=== PATIENT | female | born 1965 | race Caucasian/White ===

== ENCOUNTER 2018-10-19 10:06 | Emergency (ER) | payer OTHER ==
[~2018-10-19] VITALS: Ht 154.9 cm; Wt 63.5 kg
--- OUTSIDE RECORDS SUMMARY | 2018-10-19 10:27 | XMS REPORT | Continuity of Care Document ---
Author Organization Unknown Address Unknown Allergies There is no data. Medications There is no data. Problems There is no data. Procedures There is no data. Results There is no data. Encounters ACCT No. Visit Date/Time Discharge Status Pt. Type Provider Facility Loc./Unit Complaint [id number] 12/25/2016 11:52:00 12/25/2016 23:59:00 DIS Outpatient [facility]
--- NOTE | 2018-10-19 10:40 | ED EENT ---
History of Present Illness General Chief Complaint: Eye Problems Stated Complaint: LT EYE SWELLING Nursing Triage Note: 5 days ago started having tearing and itching of left eye that she thought was allergies. 3 days ago started losing central vision in left eye. States she can see fine from peripheral vision. Sclera is reddened, states eyelashes were matted this morning. Source: patient, family Exam Limitations: no limitations History of Present Illness Date Seen by Provider: Oct 19, 2018 Time Seen by Provider: 10:30 Initial Comments Patient presents c/ c/o left eye discomfort, redness, and vision loss x 5 days. Initially started as watering and itching, but has developed vision loss centrally over the last 3 days. Rates her pain @ 7/10. No known injury or trauma. Did have some exudate this AM. Timing/Duration: gradual, other (x 5 days) Location: eye (L) Prearrival Treatment: no prearrival treatment Modifying Factors: Improves With Other (none) Associated Symptoms: denies symptoms (x/ as noted.) Allergies and Home Medications Allergies Coded Allergies: erythromycin base (Verified Allergy, Unknown, difficulty breathing, 10/19/18) Patient Home Medication List Home Medication List Reviewed: Yes Review of Systems Review of Systems Constitutional: see HPI Eyes: See HPI, Decreased Acuity, Inflammation, Pain All Other Systems Reviewed Negative Unless Noted: Yes (Negative excepted noted.) Past [id number]-[id number]-Zsafdj Hx Patient Social History Alcohol Use: Denies Use Recreational Drug Use: No Smoking Status: Current Everyday Smoker Type Used: Cigarettes 2nd Hand Smoke Exposure: Yes Recent Foreign Travel: No Contact w/Someone Who Travel: No Recent Infectious Disease Expo: No Recent Hopitalizations: No Physical Abuse: No Sexual Abuse: No Mistreated: No Fear: No Seasonal Allergies Seasonal Allergies: No Past Medical History Surgeries: Yes Section, Gallbladder, Hysterectomy Respiratory: Yes Asthma Cardiac: No Neurological: No Genitourinary: No Gastrointestinal: No Musculoskeletal: Yes Chronic Back Pain Endocrine: No HEENT: No Cancer: No Psychosocial: Yes Anxiety, Depression Integumentary: No Physical Exam Vital Signs Vital Signs - First Documented 10/19/18 10:10 Temp 99.1 Pulse 84 Resp 18 B/P (MAP) 134/80 (98) Pulse Ox 90 Height, Weight, BMI Height: 5'1.00" Weight: 140lbs. oz. [id number]; BMI Method:Stated General Appearance: WD/WN, mild distress Eyes: left eye PERRL, left eye EOMI, left eye conjunctival inflammation, left eye lid inflammation Cardiovascular: regular rate, rhythm Respiratory: no respiratory distress Neurologic/Psychiatric: no motor/sensory deficits, alert, oriented x 3 Skin: warm/dry; No rash Progress/Results/Core Measures Results/Orders Vital Signs/I&O Blood Pressure Mean: 98 Departure Impression Primary Impression: Left eye pain Disposition: 01 HOME, SELF-CARE Condition: Stable Departure-Patient Inst. Decision time for Depature: 10:39 Referrals: [facility] (PCP) Primary Care Physician LEANDER CAIN (Family) Primary Care Physician Add. Discharge Instructions: All discharge instructions reviewed with patient and/or family. Voiced understanding. PROCEED DIRECTLY TO DR. FRIEND'S OFFICE. BRISA CHARLES DO Oct 19, 2018 10:40
--- NOTE | 2018-10-19 10:40 | NUR ---
Spoke with Dr Schaffer's office about need for patient to be seen. Nurse stated to have her come as quickly as possible and they would see her. Updated Dr Blair
[2018-10-19 10:45] VITALS: BP 134/80
== END 2018-10-19 10:44 | disposition home or self-care (01) ==
LOC: ER FS 10:09
DX: H57.12 Ocular pain, left eye (principal); F17.210 Nicotine dependence, cigarettes, uncomplicated; J45.909 Unspecified asthma, uncomplicated; F41.9 Anxiety disorder, unspecified; F32.9 Major depressive disorder, single episode, unspecified; Z90.710 Acquired absence of both cervix and uterus; Z88.1 Allergy status to other antibiotic agents
CPT/HCPCS: 99282